=== PATIENT | female | born 1975 | race American Indian/Alaskan Native ===

== ENCOUNTER 2016-10-14 14:43 | Outpatient (CLI) | payer BC ==
--- NOTE | 2016-10-14 16:25 | Mammography Report ---
BILATERAL DIGITAL SCREENING MAMMOGRAM with CAD : 10/14/16 14:43:00 CLINICAL: Routine screening. COMPARISON:11/01/15 FINDINGS: The breasts are heterogeneously dense, which may obscure small masses.Stable fibroglandular pattern with bilateral protocol asymmetries. Bilateral scattered calcifications with benign morphology. No mass, architectural distortion or suspicious calcifications. IMPRESSION: No mammographic evidence of malignancy. BI-RADS CATEGORY: 2 -- Benign RECOMMENDATION: Routine mammographic screening in one year. COMMENT: Patient follow-up letters are generated by our [employer] application.
== END 2016-10-14 14:44 | disposition home or self-care (01) ==
LOC: SPVWC 14:43
PROVIDERS: ATTEND Obstetrics & Gynecology
DX: Z12.31 Encounter for screening mammogram for malignant neoplasm of breast (principal); J45.909 Unspecified asthma, uncomplicated
CPT/HCPCS: 77067; G0202

== ENCOUNTER 2018-06-23 05:47 | Day surgery (SDC) | payer BC ==
[2018-06-22 14:03] LABS: Hematocrit 33.3 % (30.3-42.9); Hemoglobin 11.2 gm/dl (10.1-14.3); Mean Corpuscular HGB Conc 34 % (30-34); Mean Corpuscular Volume 92 fl (79-97); Platelet Count 199 K/mm3 (140-440); Red Blood Count 3.62 M/mm3 (3.65-5.03)
[2018-06-22 14:06] LABS: Red Cell Distribution Width 20.2 % (13.2-15.2)
[2018-06-22 15:24] LABS: RBC Morphology Normal; Total Cells Counted 100
--- NOTE | 2018-06-22 16:52 | History and Physical Report ---
History of Present Illness Date of examination: 06/19/18 Chief complaint: Menorrhagia and uterine fibroids History of present illness: Past History : 3 Term Births: 1 Premature Births: 1 Living Children: 2 Ectopics: 2 # 1 Delivery type: ectopic # 2 Delivery type: ectopic # 3 Delivery date: 2004 Weeks Gestation: 24 Delivery type: Delivery location: [facility] Infant Sex: Male Comments: footling breech, PTL, Dandy Walker malfomation, ? cervical insuffuciency # 4 Delivery date: 12/30/2014 Weeks Gestation: 38 Delivery type: Anesthesia type: epidural Delivery location: [facility] Sex: female weight: 6.44 Name: Abundio Comments: Prev Classical c/s, MTHFR deficiency, Prothrombin gene mutation, AMA SCIENTIFIC DIRECTOR History Uterine Surgery (not C/S): negative Operations: SCIENTIFIC DIRECTOR Surgery: (B) l'scopic salpingectomy Breast Reduction: Appendectomy (2004) classical/LTCS Abnormal PAP: negative Uterine Anomaly: negative MARILUZ Exposure: negative Infertility: negative Infection History HIV Risk Eval: no TB exposure: no Hx of STD: none Active Medications (reviewed today): IRON Current Allergies (reviewed today): MACROBID (Critical) Past Medical History: Reviewed history from 10/04/2016 and no changes required: MTHFR deficiency Prothrombin thrombophilia eczema abnormal mammogram 2016 Hyperprolactinemia d/t macroadenoma Dr. aRyo Past Surgical History: Reviewed history from 10/04/2016 and no changes required: SCIENTIFIC DIRECTOR Surgery: (B) l'scopic salpingectomy Breast Reduction: Appendectomy (2004) classical/LTCS (2014) repeat Risk Factors: Smoked Tobacco Use: Never smoker Smokeless Tobacco Use: Never Drug use: no HIV high-risk behavior: no Alcohol use: no Exercise: yes Seatbelt use: 100 % Mammogram History: Date of Last Mammogram: 10/14/2016 PAP Smear History: Date of Last PAP Smear: 11/18/2017 Physical Exam Appearance: well developed, well nourished, no acute distress Other Exams Abdomen: soft, non-tender, no masses Impression & Recommendations: Problem # 1: Excessive and frequent menstruation with regular cycle (ICD-626.2) (SZH93-T58.0) Diagnosis explained to patient . Questions answered. Discussed with patient various medical and surgical therapies common for treatment: Hormonal/medical therapy,endometrial ablation or hysterectomy. She desires cervical dilation with hysteroscopy, uterine curettage and endometrial ablation. She was informed his procedure is to decrease her heavy bleeding, she my experience amenorrhea after this procedure however she may also have persistent heavy bleeding as well. Consent reviewed and signed . Possible laparoscopy or laparotomy explained to patient especially if uterine perforation is suspected or occurs. The risks and alternatives for this surgery were reviewed with the patient. She was informed of possible bleeding, infection, injury to bowel, bladder, ureters or other adjacent organs. She's aware she may not be able to get after ablation is performed The patient was instructed/informed the following: The normal length of hospital stay for this procedure. Nothing to eat or drink after midnight the evening prior to surgery. Clear liquids the day before surgery. Fleets enema the day prior to surgery. Pre-op instruction sheets given. Wound care instructions given. Infection pr ecautions reviewed, patient to call for any signs or symptoms of infection. The usual discomforts associated with this procedure were detailed. Proper use of pain medicines was reviewed. Patient was given ample opportunity to have all her questions answered before signing informed consent. H&P dictated. Problem # 2: Fibroids of uterus; Intramural (ICD-218.1) ([id number]) Diagnosis explained to patient . Questions answered. Discussed with patient various medical, surgical and radioloigal therapies common for treatment: Hormonal/medical therapy, fibroid embolization, removal of fibroids or hysterectomy Medications Added to Medication List This Visit: 1) Iron Medications and Allergies Allergies Allergy/AdvReac Type Severity Reaction Status Date / Time nitrofurantoin AdvReac Severe Shortness Verified 06/19/18 11:56 [From Macrobid] of Breath nitrofurantoin AdvReac Severe Shortness Verified 06/19/18 11:56 macrocrystalline of Breath [From Macrobid] Home Medications Medication Instructions Recorded Confirmed Last Taken Type Ibuprofen [Motrin 800 MG tab] 800 mg PO TID PRN #30 tablet 12/30/14 06/19/18 Unknown Rx Ferrous Sulfate [Iron 325 MG] 325 mg PO DAILY 06/19/18 06/19/18 Unknown History Active Meds: Active Medications Cefazolin Sodium (Ancef/Sterile Water 2 Gm/20 Ml) 2 gm in 20 mls @ 80 mls/hr IV PREOP NR; Protocol Exam Vital Signs Temp Pulse Resp BP Pulse Ox 98.5 F 80 18 123/71 98 06/22/18 13:30 06/22/18 13:30 06/22/18 13:30 06/22/18 13:30 06/22/18 13:30 - Respiratory Positive: normal expansion, normal respiratory effort, clear to auscultation - Cardiovascular Rhythm: regular Results - Labs 06/22/18 13:40 Abnormal lab results 06/22/18 Range/Units 13:40 RBC 3.62 L (3.65-5.03) M/mm3 RDW 20.2 H (13.2-15.2) % Monocytes % (Manual) 10.0 H (0.0-7.3) % Assessment and Plan - Patient Problems (1) Excessive and frequent menstruation with regular cycle Status: Chronic (2) Uterine fibroid Status: Chronic Qualifiers: Uterine leiomyoma location: intramural Qualified Code(s): D25.1 - Intramural leiomyoma of uterus
[2018-06-23] MEDS ORDERED: ANCEF/STERILE WATER 2 GM/20 ML 2 GM/20 ML SYRINGE IV NR (06:00)
[2018-06-23] MEDS ORDERED: NACL BACTERIOSTATIC INFILTRATI ONE (06:28)
[2018-06-23] MEDS ORDERED: SUBLIMAZE ONE (07:14)
[2018-06-23] MEDS ORDERED: DIPRIVAN 10 MG/ML IV ONE (07:14)
--- NOTE | 2018-06-23 07:38 | Anesthesia Consultation ---
Anesthesia Consult and Med Hx - Airway Anesthetic Teeth Evaluation: Good ROM Head & Neck: Adequate Mental/Hyoid Distance: Adequate Mallampati Class: Class II Intubation Access Assessment: Good - Pulmonary Exam CTA: Yes - Cardiac Exam Cardiac Exam: RRR - Pre-Operative Health Status ASA Pre-Surgery Classification: ASA2 Proposed Anesthetic Plan: General - Pulmonary Hx Asthma: Yes (childhood) COPD: No Hx Pneumonia: No - Cardiovascular System Hx Hypertension: No - Central Nervous System Hx Seizures: No Hx Psychiatric Problems: No - Endocrine Hx Renal Disease: No Hx End Stage Renal Disease: No Hx Hypothyroidism: No Hx Hyperthyroidism: No - Hematic Hx Anemia: Yes Hx Sickle Cell Disease: No - Other Systems Hx Alcohol Use: No Hx Cancer: No
--- NOTE | 2018-06-23 07:38 | Anesthesia Day of Surgery ---
Anesthesia Day of Surgery - Day of Surgery Patient Examined: Yes Patient H&P Reviewed: Yes Patient is NPO: Yes Beta Blockers: No Cardiac Clearance: No Pulmonary Clearance: No
[2018-06-23] MEDS ORDERED: SUBLIMAZE IV PRN (07:39)
[2018-06-23] MEDS ORDERED: ZOFRAN IV PRN (07:39)
[2018-06-23] MEDS ORDERED: DEMEROL IV PRN (07:39)
[2018-06-23] MEDS ORDERED: DILAUDID IV PRN (07:39)
[2018-06-23] MEDS ORDERED: NARCAN 0.4 MG/1 ML IV PRN (07:39)
[2018-06-23] MEDS ORDERED: LACTATED RINGERS 1,000 ML IV SCH (08:00)
[2018-06-23] MEDS ORDERED: NACL 0.9% IR ONE ×2 (08:00)
--- NOTE | 2018-06-23 08:33 | Operative Report ---
Operative Report Operative Report: Date: 06/23/2018 Preoperative diagnosis: 1. Menorrhagia 2. Fibroids Postoperative diagnosis: 1. Menorrhagia 2. Fibroids Procedure: 1. Cervical dilation 2. Diagnostic hysteroscopy 3. Uterine curettage 4. Endometrial ablation, NovaSure device Surgeon: Elma Arshad MD Oncology Registrar: [] Anesthesiologist: Dr. Jenkins Anesthesia: Gen. anesthesia EBL: Minimal Findings: Uterine cavity length: 5 cm Uterine cavity width: 4.4 cm Ablation wattage: 121 W Duration: 2 minutes Distention medium: Normal saline Fluid deficit: 200 mL Procedure: After risks, benefits, complications, consequences and alternatives for this procedure were explained, and patient voiced her understanding and her desire to proceed, she is taken to the OR and placed in the supine position. General anesthesia was induced. She was placed in the dorsolithotomy position. Exam under anesthesia was unremarkable. She was then prepped and draped in usual sterile fashion. Timeout was performed. A Roach catheter was introduced into the bladder with drainage of clear yellow urine. A operative speculum was introduced was introduced into the vagina. The anterior lip of the cervix was grasped with single-tooth tenaculum and the uterus was sounded to 11 cm. The cervix was progressively dilated to allow the operative hysteroscope. The uterine cavity appeared to be grossly normal. The hysteroscope was removed and uterine curettage was then performed. Then the uterine cavity length was determined. The NovaSure device was then set to 5 cm. The array was deployed to ensure adequate release. The device was introduced into the uterus and the array was released.. Uterine cavity width was determined to be 4.4 cm. Uterine integrity was confirmed. Ablation was performed. The procedure was completed at 2 minutes. The device was removed. The hysteroscope was reintroduced. Ablation of all surfaces was noted. No obvious evidence of perforation was noted. The procedure was ended. The speculum and the tenaculum were removed. Hemostasis was noted. The Roach catheter was removed, still with drainage of clear yellow urine. No bleeding from the tenaculum site was noted. Clear yellow urine was draining into the Roach catheter at the end of the procedure. Patient tolerated procedure well and taken to recovery room in stable condition
--- NOTE | 2018-06-23 09:23 | Post Anesthesia Evaluation ---
- Post Anesthesia Evaluation Patient Participated: Yes Airway Patent: Yes Stable Respiratory Function: Yes Nausea/Vomiting: No Temp > 96.8F: Yes Pain Manageable: Yes Adequeate Hydration: Yes Anesthesia Complications: No
[2018-06-23 11:02] VITALS: BP 108/64
== END 2018-06-23 09:50 | disposition home or self-care (01) ==
LOC: OR 05:47
PROVIDERS: ATTEND Obstetrics & Gynecology
DX: N85.01 Benign endometrial hyperplasia (principal); N92.0 Excessive and frequent menstruation with regular cycle; D25.9 Leiomyoma of uterus, unspecified; G43.909 Migraine, unspecified, not intractable, without status migrainosus; J45.909 Unspecified asthma, uncomplicated; K21.9 Gastro-esophageal reflux disease without esophagitis; M16.11 Unilateral primary osteoarthritis, right hip; Z79.899 Other long term (current) drug therapy; Z90.49 Acquired absence of other specified parts of digestive tract; Z98.891 History of uterine scar from previous surgery; Z98.890 Other specified postprocedural states; Z83.3 Family history of diabetes mellitus; Z80.8 Family history of malignant neoplasm of other organs or systems; Z82.49 Family history of ischemic heart disease and other diseases of the circulatory system; Z86.2 Personal history of diseases of the blood and blood-forming organs and certain disorders involving the immune mechanism; Z88.8 Allergy status to other drugs, medicaments and biological substances
CPT/HCPCS: 36415; 58563; 81025; 85007; 85025; 86850; 86900; 86901; 88305; A4217; J0690; J2704; J3010; J7120

== ENCOUNTER 2019-02-16 16:27 | Outpatient (CLI) | payer BC ==
--- NOTE | 2019-02-17 14:25 | Mammography Report ---
DIGITAL SCREENING MAMMOGRAM WITH CAD, 02/16/2019 INDICATION: Routine screening mammography. History of bilateral reduction mammoplasty. TECHNIQUE: Digital bilateral 2D mammography was obtained in the craniocaudal and mediolateral obliq ue projections. This examination was interpreted with the benefit of Computer-Aided Detection analysi s. COMPARISON: 02/09/2018 and 10/14/2016 FINDINGS: Breast Density: The breasts are heterogeneously dense, which may obscure small masses. Right asymmetries require additional imaging. No architectural distortion or suspicious calcification s of the right breast. Scattered bilateral benign calcifications. There is no evidence of dominant ma ss, suspicious calcifications or architectural distortion in the left breast. IMPRESSION: Right asymmetries requiring additional imaging. Recommend recall for right spot compressi on views and right breast ultrasound if needed. Follow up recommendation: Routine yearly Category 0: Incomplete. Needs additional imaging evaluation and/or prior mammograms for comparison. A "normal" or negative report should not discourage follow up or biopsy of a clinically significant f inding. A written summary of these findings will be mailed to the patient. The patient will be entered into a mammography reporting system which will generate a reminder letter for the patient's next appointmen t at the appropriate interval. The [employer] recommends yearly mammograms starting at age 40 and continuing as l viry as a woman is in good health. Breast MRI is recommended for women with an approximate 20-25% or greater lifetime risk of breast cancer, including women with a strong family history of breast or ova antionette cancer or who have been treated for Hodgkin's disease. Signer Name: Mitch Ho MD Signed: 02/17/2019 2:20 PM Workstation Name: [id number]
== END 2019-02-16 16:28 | disposition home or self-care (01) ==
LOC: SPVWC 16:27
PROVIDERS: ATTEND Obstetrics & Gynecology
DX: Z12.31 Encounter for screening mammogram for malignant neoplasm of breast (principal); Z88.8 Allergy status to other drugs, medicaments and biological substances
CPT/HCPCS: 77067

== ENCOUNTER 2020-03-20 12:59 | Outpatient (CLI) | payer BC ==
--- NOTE | 2020-03-21 12:12 | Mammography Report ---
DIGITAL SCREENING MAMMOGRAM WITH CAD, 03/21/2020 CLINICAL INFORMATION / INDICATION: Routine screening mammography. TECHNIQUE: Digital bilateral 2D mammography was obtained in the craniocaudal and mediolateral obliqu e projections. This examination was interpreted with the benefit of Computer-Aided Detection analysis . COMPARISON: 02/16/2019, 10/14/2016 FINDINGS: Breast Density: The breasts are heterogeneously dense, which may obscure small masses. No dominant mass, suspicious calcifications, or architectural distortion in either breast. Is a stabl e benign-appearing nodule in the upper inner quadrant of the right breast. Bilateral reduction mammop lasty changes are present. Overall, no significant interval change. IMPRESSION: No mammographic evidence of malignancy. Follow up recommendation: Routine yearly BI-RADS Category 2: Benign. A "normal" or negative report should not discourage follow up or biopsy of a clinically significant f inding. A written summary of these findings will be mailed to the patient. The patient will be entered into a mammography reporting system which will generate a reminder letter for the patient's next appointmen t at the appropriate interval. The [employer] recommends yearly mammograms starting at age 40 and continuing as l viry as a woman is in good health. Breast MRI is recommended for women with an approximate 20-25% or greater lifetime risk of breast cancer, including women with a strong family history of breast or ova antionette cancer or who have been treated for Hodgkin's disease. Signer Name: Huong Barnes MD Signed: 03/21/2020 12:08 PM Workstation Name: [id number]
== END 2020-03-20 13:00 | disposition home or self-care (01) ==
LOC: SPVWC 12:59
PROVIDERS: ATTEND Obstetrics & Gynecology
DX: Z12.31 Encounter for screening mammogram for malignant neoplasm of breast (principal)
CPT/HCPCS: 77067